=== PATIENT | female | born 2000 | race Caucasian/White ===

== ENCOUNTER 2020-11-12 22:34 | Emergency (ER) | payer OTHER, SELFPAY ==
[2020-11-12 23:17] LABS: Bilirubin Neg (Negative); Blood, Urine Negative (Negative); Clarity Clear (Clear); Glucose, Urine (Dipstick) Normal (Negative); Ketone, Urine Negative (Negative); Leukocyte Negative (Negative); Nitrite Negative (Negative); Protein, Urine (Dipstick) Negative (Neg-Trace); Urobilinogen Normal mg/dL (Less than 2)
[2020-11-12 23:28] LABS: #Eosinphils 0.1 10x3/uL (0.0-0.5); #Monocytes 0.5 10x3/uL (0.0-1.1); %Basophils 0.3 % (0.0-2.0); %Eosinophils 1.2 % (0.0-6.0); %Lymphocytes 7.3 % (18.0-47.0); %Monocytes 7.8 % (0.0-10.0); %Neutrophils 82.9 % (40.0-75.0); Mean Corpuscular HGB CONC 34.8 g/dL (32.0-36.0); Mean Corpuscular Hemoglobin 29.6 pg (27.0-33.0); Mean Corpuscular Volume 85.2 fl (81.6-98.3); Mean Platelet Volume 9.7 fl (7.4-10.4); Platelet Count 280 10x3/uL (150-450); RBC Distribution Width 12.5 % (11.5-14.5); Red Blood Cell (RBC) Count 4.39 10x6/uL (3.90-5.03)
[2020-11-12 23:34] LABS: Chloride 103 mmol/L (98-107); Potassium 3.9 mmol/L (3.5-5.1); Sodium 136 mmol/L (136-145)
[2020-11-12 23:37] LABS: BHCG - Serum Negative (NEGATIVE); Pregs Control Background? CLEAR/WHITE (CLR/WHITE); Pregs Control Bar Appear? YES (CONTROL BAR)
[2020-11-12 23:53] LABS: ALT (SGPT) 29 U/L (8-55); AST (SGOT) 29 U/L (5-34); Albumin 4.2 g/dL (3.5-5.0); Alkaline Phosphatase 47 U/L (40-100); BUN (Urea Nitrogen) 9 mg/dL (7.0-18.7); Bilirubin, Total 0.4 mg/dL (0.2-1.2); Calc. Creatinine Clearance 0 mL/min (70-130); Calcium 10.2 mg/dL (7.8-10.44); Carbon Dioxide 25 mmol/L (22-29); Globulin 3.6 g/dL (2.4-3.5); Glucose 113 mg/dL (70-105); Protein, Total 7.8 g/dL (6.0-8.3)
[2020-11-13] MEDS ORDERED: Ketorolac Tromethamine 30 MG/ML VIAL ONE (00:05)
[2020-11-13] MEDS ORDERED: Acetaminophen 500 MG TAB ONE (00:05)
[2020-11-13] MEDS ORDERED: cefTRIAXone\\ROCEPHIN 2 GM VIAL ONE (00:06)
[2020-11-13 00:08] LABS: Anion Gap 12 mmol/L (10-20)
[2020-11-13 20:52] LABS: SARS-CoV-2 PCR by NAA DETECTED (NotDetected)
== END 2020-11-13 01:50 | disposition home or self-care (01) ==
LOC: CSHERS 22:34
DX: U07.1 COVID-19 (principal)
CPT/HCPCS: 36415; 80053; 81003; 83605; 84703; 85025; 87040; 87086; 96374; J0696; J1885; U0003; U0005